=== PATIENT | male | born 1980 ===

== ENCOUNTER 2021-11-28 16:24 | Emergency (ER) | payer SELFPAY ==
[~2021-11-28] VITALS: Ht 180.3 cm; Wt 120.0 kg
[2021-11-28 16:30] VITALS: BP 169/79
== END 2021-11-28 16:50 | disposition home or self-care (01) ==
LOC: EMS 16:26
DX: S81.801A Unspecified open wound, right lower leg, initial encounter (principal); Z59.819 Housing instability, housed unspecified; X58.XXXA Exposure to other specified factors, initial encounter; Y93.89 Activity, other specified; Y92.89 Other specified places as the place of occurrence of the external cause; Y99.8 Other external cause status
CPT/HCPCS: 99281; Z7502